=== PATIENT | male | born 1995 | race Caucasian/White ===

== ENCOUNTER 2017-09-03 13:44 | Emergency (ER) | payer OTHER ==
[2017-09-03 14:25] VITALS: BP 148/74
[2017-09-03] MEDS ORDERED: cefTRIAXone VIAL(*) 250 MG VIAL IM ONE (14:50)
[2017-09-03] MEDS ORDERED: Lidocaine 1% MPF* 2 ML VIAL INJ ONE (14:51)
[2017-09-03] MEDS ORDERED: Azithromycin TAB* 250 MG PO ONE (14:51)
--- NOTE | 2017-09-03 15:08 | UC ---
Complaint Male HPI - HPI Summary HPI Summary: BURNING WITH URINATION FOR FOUR DAYS WITH WHITE DISCHARGE FROM [facility]. STATES SAME PARTNER FOR 6 MONTHS NO NEW CHANGES IN SEXUAL PARTNER. NO ABDOMINAL PAIN. NO FEVER. NO BACK PAIN. PARTNER HAS SIMILAR SYMPTOMS. - History of Current Complaint Chief Complaint: [facility] Stated Complaint: PERSONAL Time Seen by Provider: 09/03/17 14:04 Hx Obtained From: Patient Onset/Duration: Gradual Onset, Lasting Days, Still Present Timing: Intermittent Severity Initially: Mild Severity Currently: Mild Associated Signs And Symptoms: Positive: Penile Discharge. Negative: Fever, Hematuria, Dysuria, Constipation, Blood in Stool, Nausea, Vomiting(# Of Episodes =), Penile Swelling - Risk Factors Testicular Torsion: Negative - Allergies/Home Medications Allergies/Adverse Reactions: Allergies Allergy/AdvReac Type Severity Reaction Status Date / Time No Known Allergies Allergy Verified 08/31/16 18:33 Home Medications: Home Medications Colesevelam HCl [Welchol] 09/03/17 [History] PMH/Surg Hx/FS Hx/Imm Hx Previously Healthy: Yes - Surgical History Surgical History: Yes Surgery Procedure, Year, and Place: Colon resection 2013 - Family History Known Family History: Negative: Renal Disease - Social History Occupation: Student Lives: Dormitory/Roommates Alcohol Use: Occasionally Substance Use Type: None Smoking Status (MU): Never Smoked Tobacco - Immunization History Most Recent Influenza Vaccination: current Review of Systems Constitutional: Negative Skin: Negative Eyes: Negative ENT: Negative Respiratory: Negative Cardiovascular: Negative Gastrointestinal: Negative Genitourinary: Dysuria, Vaginal/Penile Discharge Motor: Negative Neurovascular: Negative Musculoskeletal: Negative Neurological: Negative Psychological: Negative Is Patient Immunocompromised?: No All Other Systems Reviewed And Are Negative: Yes Physical Exam Triage Information Reviewed: Yes Appearance: Well-Appearing, No Pain Distress, Well-Nourished Vital Signs: Initial Vital Signs Temp 98.1 F 09/03/17 14:22 Pulse 91 09/03/17 14:22 Resp 18 09/03/17 14:22 BP 148/74 09/03/17 14:22 Pulse Ox 99 09/03/17 14:22 Vital Signs Reviewed: Yes Eye Exam: Normal ENT Exam: Normal ENT: Positive: Normal ENT inspection Dental Exam: Normal Neck exam: Normal Respiratory Exam: Normal Respiratory: Positive: Chest non-tender, Lungs clear, Normal breath sounds, No respiratory distress, No accessory muscle use Cardiovascular Exam: Normal Cardiovascular: Positive: RRR, No Murmur, Pulses Normal Abdominal Exam: Normal Abdomen Description: Positive: Nontender, No Organomegaly, Soft. Negative: CVA Tenderness (R), CVA Tenderness (L) Musculoskeletal Exam: Normal Musculoskeletal: Positive: Strength Intact, ROM Intact Neurological Exam: Normal Psychological Exam: Normal Skin Exam: Normal Complaint Male Course/Dx - Differential Dx/Diagnosis Differential Diagnosis/HQI/PQRI: Urinary Tract Infection, Other - STD Provider Diagnoses: DYSURIA; CONCERN FOR STD; STD PROPHYLAXIS Discharge - Discharge Plan Condition: Stable Disposition: HOME Patient Education Materials: Sexually Transmitted Diseases (ED), Dysuria (ED) Referrals: [facility] [Outside] No Primary Care Phys,NOPCP [Primary Care Provider] -
== END 2017-09-03 15:47 | disposition home or self-care (01) ==
LOC: UCCORT 13:44
DX: R30.0 Dysuria (principal)
CPT/HCPCS: 81003; 87491; 87591; 96372; 99212; A9270-GY; G0463; J0696